=== PATIENT | female | born 1985 | race Caucasian/White ===

== ENCOUNTER 2019-05-16 05:18 | Inpatient (IN) | payer OTHER, SELFPAY ==
--- NOTE | 2019-05-15 17:59 | PCM.HP.OB ---
- Problem List (1) 39 weeks gestation of Status: Acute (2) Fourth degree perineal laceration Status: Acute (3) Sterilization Status: Acute History Date of Admission: 05/15/19 Final EMMANUEL: 05/23/19 Gestational age: 38 Weeks and 6 Days History of this : This is a 34 year-old, G2, P1001, who is scheduled for a PLTCS with tubal ligation at 39 weeks gestation. This is an elective section for h/o 4th degree perineal laceration. Medical History: Medical History (Last Updated 05/15/19 @ 18:02 by Serene Toledo DO) Anemia D64.9 History of fourth degree perineal laceration Z87.59 History of wisdom tooth extraction K08.409 Melanoma C43.9 Surgical History: Surgical History (Last Updated 05/15/19 @ 18:02 by Serene Toledo DO) History of removal of skin mole Z98.890, Z87.2 NKDA Home Medications: Home Medications Pnv No.95/Ferrous Fum/Folic AC [ Vitamin Tablet] 1 each PO 05/15/19 Smoking Status: Never smoker Number of Fetus(es): 1 History Past Pregnancies: Past Pregnancies Delivery Date Name GA/Weeks Outcome Route Weight Gender Labor Length Anesthesia Delivery Location Provider FOB Labs: GBS pos 1 hr GTT 114 Hgb 11.6 Sequential screen neg Syphilis NR RI Hep B neg HIV NR O positive Antibody screen neg GC/CT neg Expected Delivery Method: Primary Section Review of Systems Constitutional: Denies: Fever HEENT: Denies: Head Aches Cardiovascular: Denies: Chest Pain Respiratory: Denies: Cough, Shortness of Breath Gastrointestinal: Denies: Abdominal Pain Genitourinary: Denies: Dysuria Gynecological: Denies: Breast symptoms Neurological: Denies: Headaches Psychiatric: Denies: Anxiety, Depression Physical Exam General: Alert, No apparent distress HEENT: Atraumatic Cardiovascular: Regular rate Lungs: Clear to auscultation Abdomen: Soft, Gravid Extremities:: No edema Neurological: Neuro grossly intact [employer]: Normal external genitalia Estimated gestational size: Appropriate for gestational size Assessment/Plan All Active Problems (Last Updated 05/15/19 @ 18:02 by Serene Toledo DO) 39 weeks gestation of (Acute) Fourth degree perineal laceration (Acute) Sterilization (Acute) This is a 34 year-old, who is presenting at 39 weeks gestation for a primary section with tubal ligation. H/o 4th degree perineal laceration. Risks and benefits of vaginal delivery vs C/S were discussed in detail. Discussed that a tubal ligation is permanent and irreversible, and she needs to be 100% certain she does not want more children in the future. Patient desires a PLTCS with tubal ligation given her h/o 4th degree perineal laceration. Consent signed. To proceed with elective section with tubal ligation per pt request.
[2019-05-16] VITALS (21 sets, daily range): BP systolic 97–128; BP diastolic 51–75; PULSE 54–80; RESP 16–18; TEMP 36.2–36.9; O2SAT 97–100; BMI 34.7
[2019-05-16] MEDS: Lactated Ringers 1,000 ML 999 ML IV (05:15)
[2019-05-16 06:06] LABS: Absolute Lymphocyte Count 2.71 X10^3/ul (0.83-4.51); Absolute Neutrophil Count 5.9 X10^3/uL (2.0-7.7); Basophil# 0.04 X10^3/uL; Basophil% 0.4 % (0-1); Eosinophil# 0.11 X10^3/uL; Eosinophils% 1.1 % (0-5); Hematocrit 37.2 % (37-47); Hemoglobin 12.9 g/dl (12.0-15.0); Lymphocyte # 2.71 X10^3/ul (4.0); Lymphocyte % 27.6 % (19-41); Mean Corp Hgb Conc 34.7 g/gl (32-36); Mean Corpuscular Hgb 30.1 pg (27.0-32.0); Mean Corpuscular Volume 86.9 fL (81-99); Mean Platelet Vol. 11.9 fl (6.2-12.0); Monocyte# 1.01 X10^3/uL; Monocyte% 10.3 % (0-10); Neutrophil # 5.89 X10^3/uL (2.7-7.7); Neutrophil % 60.1 % (47-70); Platelet Count 203 K/mm3 (150-450); RBC Distribution Width CV 12.9 % (11.6-14.6); RBC Distribution Width SD 39.9 fl (35.1-43.9); Red Blood Count 4.28 M/mm3 (4.2-5.4); White Blood Count 9.8 K/mm3 (4.4-11.0)
[2019-05-16 06:07] LABS: POSITIVE COUNT NO; POSITIVE DIFFERENTIAL NO; POSITIVE MORPHOLOGY NO
[2019-05-16] MEDS: Lactated Ringers 1,000 ML 150 ML IV (06:31)
[2019-05-16] MEDS: Sodium Citrate/Citric Acid 30 ML UDC PO (06:57)
[2019-05-16] MEDS: Cefazolin 2 GM in 0.9% Normal Saline 100 ML IV (07:24)
[2019-05-16] MEDS: Oxytocin 30 units/NS 500 ml 30 UNITS/500 ML IV.SOLN 167 UNITS IV (07:52)
--- NOTE | 2019-05-16 08:38 | PCM.OPRPT ---
Problem List (1) 39 weeks gestation of Status: Acute (2) Fourth degree perineal laceration Status: Acute (3) Sterilization Status: Acute Report of Operation Date of Procedure: 05/16/19 Pre-Operative Diagnosis: multiparous patient, 39 weeks gestation, elective primary section due to h/o 4th degree perineal laceration, desires permanent sterilization Post-Operative Diagnosis: As above Surgery/Procedure Performed:: PLTCS via pfannenstiel incision with partial bilateral salpingectomy Description of Surgical Findings:: Normal appearing uterus, bilateral tubes, and bilateral ovaries. Clear fluid. Intact and normal appearing placenta. VMI in cephalic presentation. Type of Anesthesia:: Spinal Special Medications: None Specimen's removed: Placenta and bilateral fallopian tube segments Drains: Lawrence Estimated Blood Loss (mL): 500 Fluids Replaced: 1500 Description of Procedure: Patient was prepped and draped in usual sterile fashion in dorsal lithotomy position with a leftward tilt. Spinal anesthesia found to be adequate. A Pfannenstiel skin incision was made with the scalpel and carried down to the underlying layer of fascia. The fascia was incised in the midline and extended laterally using Enriquez scissors. The fascia was dissected off of the rectus muscles using sharp dissection cephalad and caudad. The rectus muscles were in the midline. The peritoneum was entered sharply and extended cephalad and caudad with good visualization of the bladder. A bladder flap was created. A low transverse incision was made on the uterus with the scalpel. Clear fluid noted. Infant in cephalic presentation and delivered without any force or delay. Cord was clamped and cut after 60 sec delay and handed off to nursery staff. Uterus was exteriorized and cleared of all clot and debris. The cervix was dilated with a ring forcep. The uterus was closed in a running locked fashion with Vicryl and hemostasis was noted. Bilateral fallopian tubes were followed out to the fimbriated ends. Each fallopian tube was double suture ligated and cut, to remove a segment of the fallopian tube. The tubes were hemostatic and sent to pathology for review. The uterine incision was again noted to be hemostatic. The uterus was placed back into the abdomen. The peritoneum was closed in a running fashion with Vicryl. The rectus muscles were noted to be hemostatic. The fascia was closed in a running fashion with Vicryl. The subcutaneous space was irrigated and closed in a running fashion with Vicryl. The skin was closed with Monocryl in a subcuticular fashion. Steri strips were placed, as well as a dressing. Instrument counts were correct. Patient was taken to the recovery room in stable condition. Grafts/Implants Used: None - Complications None - Admit VTE Documentation VTE Present on Admission: No VTE Mechan Device Prophylaxis: SCD's VTE Pharm Prophylaxis ordered?: Yes Delivery Classification: Scheduled Final EMMANUEL: 05/23/19 Gestational age: 39 Weeks and 0 Days Indications: H/o 4th degree perineal laceration, desires permanent sterilization Indications for : Desires elective sterilization Amniotic Membrane Rupture Type: Artificial Amniotic Fluid Description: Clear Specimen(s) sent to pathology: Bilateral fallopian tube segments Drain: Lawrence to straight drain Fluids Replaced: 1500 Cord Entanglement: Around neck x 1, loose Nuchal Cord Compression: Without compression Cord Vessel Description: 3 Vessels Esitmated Blood Loss (ml): 500 Gender: Male (1 minute): 9 (5 minute): 9 Delayed cord clamping: Yes Pre-op Antibiotic Given: Ancef 2 grams IV x1 Pt instructed on risks of surgery: Bleeding, Anesthesia Risks, Infection, Permanency Complications: None - Admit VTE Documentation VTE Present on Admission: No VTE Mechan Device Prophylaxis: SCD's VTE Pharm Prophylaxis ordered?: Yes
[2019-05-16] MEDS: Lactated Ringers 1,000 ML 100 ML IV ×2 (09:52→18:14)
--- NOTE | 2019-05-16 11:36 | FALS_PTH ---
PATIENT: BLANCA BHATT LOC: [facility] U#:[id number] AGE/SX: 34/F ROOM: WP003 RE05/16/[address]: Dr. Serene Toledo DO : 1985 BED: 1 DIS: 05/18/2019 SPEC #: [id number] RECD: 05/16/19 11:49 STATUS: NATALI ECTOR #: [id number] WINDY: 05/16/19 11:[address]: Serene Toledo DEPT: SURGICAL PATHOLOGY RECD BY: Irina Angulo ENTERED: 05/16/19 14:51 SP TYPE: FALL TUBES OTHR DR: Out of [facility] Doctor Tissues: Fallopian tube Procedures: Surgery Specimen Level II HEADER OPERATION: Tubal PRE-OP DIAGNOSIS: Sterilization request TISSUE SUBMITTED: Fallopian tubes, right tube has suture MICROSCOPIC DIAGNOSIS Right fallopian tube, sterilization: Segment of fallopian tube with complete lumen. Left fallopian tube, sterilization: Segment of fallopian tube with complete lumen. CE:malaika 05/17/19 MICROSCOPIC DESCRIPTION Slides are reviewed. GROSS DESCRIPTION Received is one container labeled with the patient's name and designated bilateral fallopian tubes, stitch right. The specimen consists of two tubular pieces of pink-peters soft tissue with the right identified with a suture. The right fallopian tube measures 1.5 cm in length and 0.7 cm in diameter. The left fallopian tube measures 1.5 cm in length and 0.6 cm in diameter. The entire specimen is submitted in two cassettes as follows: 1 - right fallopian tube, 2 - left fallopian tube. Both pieces will be sectioned at the time of embedding. / SJ:malaika 05/16/19 TC:5 CPT: 38257 x2
[2019-05-16 11:48] LABS: Pathology Specimen OB SEE PATHOLOGY REPORT
[2019-05-16] MEDS: Ketorolac 30 MG/ML Syringe IV ×2 (14:51→20:54)
[2019-05-17] MEDS: Ketorolac 30 MG/ML Syringe IV ×4 (01:03→19:45)
[2019-05-17 02:45] VITALS: PULSE 60; RESP 18; O2SAT 99
[2019-05-17 04:15] VITALS: BP 121/68; PULSE 64; RESP 18; TEMP 36.9; O2SAT 100
[2019-05-17 05:22] LABS: Hemoglobin 10.1 g/dl (12.0-15.0); Mean Corp Hgb Conc 33.7 g/gl (32-36); Mean Platelet Vol. 11.8 fl (6.2-12.0); Platelet Count 136 K/mm3 (150-450); RBC Distribution Width SD 40.1 fl (35.1-43.9); Red Blood Count 3.37 M/mm3 (4.2-5.4); White Blood Count 10.3 K/mm3 (4.4-11.0)
[2019-05-17 05:23] LABS: Scan Indicated on CBC? Y/N NO
[2019-05-17 06:17] VITALS: PULSE 70; RESP 16; O2SAT 100
[2019-05-17] MEDS: Enoxaparin 40 MG/0.4 ML Syringe SC (06:18)
[2019-05-17] MEDS: 0.9% Saline Lock 10 ML Syringe IV ×3 (08:10→19:46)
[2019-05-17] MEDS: Senna/Docusate Sodium 1 Tablet PO (08:10)
[2019-05-17 08:15] VITALS: BP 101/59; PULSE 78; RESP 18; TEMP 37.1; O2SAT 100
--- NOTE | 2019-05-17 08:17 | PCM.PN.OB ---
Subjective: Pt doing well. Pain controlled. Bella reg diet without N/V. Ambulating with occasional lightheadedness and dizziness that is not persistent. Spont voiding without difficulty. Lochia normal. Denies CP, SOB, leg pain. - Physical Exam General: Alert, No apparent distress HEENT: Atraumatic Lungs: - - No increased resp effort Abdomen: Soft, Non-Distended, - - ATTP, FF@U-2, dressing c/d/i Extremities: No edema, No Calf Tenderness Skin: No rashes Neurological: Neuro grossly intact Psych/Mental Status: Normal Affect, Appropriate Vital Signs Temp Pulse Resp BP Pulse Ox 98.4 F 70 16 121/68 H 100 05/17/19 04:15 05/17/19 06:17 05/17/19 06:17 05/17/19 04:15 05/17/19 06:17 Oxygen Delivery Method Room Air Weight: 155 lb Body Mass Index (BMI) 34.7 Intake and Output for Last 24 Hours 05/15/19 05/16/19 05/17/19 23:59 23:59 23:59 Intake Total 3275 / 3275 1794 / 1794 Output Total 700 / 700 2049 / 2049 Balance 2575 / 2575 -256 / -256 Laboratory Tests Past 24 Hrs 05/17/19 04:25 WBC 10.3 RBC 3.37 L Hgb 10.1 L Hct 30.0 L MCV 89.0 MCH 30.0 MCHC 33.7 RDW 13.0 RDW Differential 40.1 Plt Count 136 L MPV 11.8 Medical Necessity - Tobacco Use Smoking Status: Never smoker Assessment/Plan All Active Problems (Last Updated 05/15/19 @ 18:02 by Serene Toledo DO) 39 weeks gestation of (Acute) Fourth degree perineal laceration (Acute) Sterilization (Acute) POD# 1 s/p PLTCS - AF, VSS - Plt's 136 from 203. Will d/c Lovenox and recheck CBC in the AM - Pain controlled - Dispo: Routine PO care
[2019-05-17] MEDS: oxyCODONE 5 MG Tablet PO ×4 (09:10→22:32)
[2019-05-17 14:01] VITALS: BP 98/51; PULSE 64; RESP 16; TEMP 36.6; O2SAT 98
[2019-05-17 19:55] VITALS: BP 116/66; PULSE 73; RESP 18; TEMP 36.8
[2019-05-18] MEDS: 0.9% Saline Lock 10 ML Syringe IV ×2 (01:16→08:02)
[2019-05-18] MEDS: Ketorolac 30 MG/ML Syringe IV ×2 (01:16→08:02)
[2019-05-18 01:22] VITALS: BP 105/51; PULSE 70; RESP 18; TEMP 36.2
[2019-05-18 04:34] LABS: Hematocrit 28.1 % (37-47); Hemoglobin 9.3 g/dl (12.0-15.0); Mean Corp Hgb Conc 33.1 g/gl (32-36); Mean Corpuscular Hgb 29.8 pg (27.0-32.0); Mean Corpuscular Volume 90.1 fL (81-99); Mean Platelet Vol. 11.2 fl (6.2-12.0); Platelet Count 139 K/mm3 (150-450); RBC Distribution Width CV 13.2 % (11.6-14.6); RBC Distribution Width SD 41.9 fl (35.1-43.9); Red Blood Count 3.12 M/mm3 (4.2-5.4); White Blood Count 7.3 K/mm3 (4.4-11.0)
[2019-05-18 04:35] LABS: Scan Indicated on CBC? Y/N NO
--- NOTE | 2019-05-18 07:32 | PCM.PN.OB ---
Subjective: Patient doing well. Tolerating a regular diet without nausea or vomiting. Ambulating and voiding without difficulty. Pain well controlled. Lochia normal. without difficulty. Denies lightheadedness, dizziness, CP, SOB, leg pain. - Physical Exam General: Alert, No apparent distress HEENT: Atraumatic Lungs: Normal air movement Abdomen: Soft, Non-Distended, - - ATTP, dressing c/d/i Extremities: No edema, No Calf Tenderness Skin: No rashes Neurological: Neuro grossly intact Psych/Mental Status: Normal Affect, Appropriate Vital Signs Temp Pulse Resp BP Pulse Ox 97.2 F L 70 18 105/51 L 98 05/18/19 01:22 05/18/19 01:22 05/18/19 01:22 05/18/19 01:22 05/17/19 14:01 Oxygen Delivery Method Room Air Weight: 155 lb Body Mass Index (BMI) 34.7 Intake and Output for Last 24 Hours 05/16/19 05/17/19 05/18/19 23:59 23:59 23:59 Intake Total 3275 / 3275 1794 / 1794 Output Total 700 / 700 2650 / 2650 Balance 2575 / 2575 -856 / -856 Laboratory Tests Past 24 Hrs 05/18/19 04:20 WBC 7.3 RBC 3.12 L Hgb 9.3 L Hct 28.1 L MCV 90.1 MCH 29.8 MCHC 33.1 RDW 13.2 RDW Differential 41.9 Plt Count 139 L MPV 11.2 Medical Necessity - Tobacco Use Smoking Status: Never smoker Assessment/Plan All Active Problems (Last Updated 05/15/19 @ 18:02 by Serene Toledo DO) 39 weeks gestation of (Acute) Fourth degree perineal laceration (Acute) Sterilization (Acute) POD#2 s/p PLTCS with BPS - Doing well - Plt's trending up after Lovenox discontinued - - PPBC: S/p BPS - Dispo: Patient desires to go home today. D/c instructions reviewed and follow up discussed
[2019-05-18 08:00] VITALS: BP 124/63; PULSE 68; RESP 16; TEMP 36.6; O2SAT 99
[2019-05-18] MEDS: Acetaminophen 500 MG Tablet 1000 MG PO (08:15)
[2019-05-18] MEDS: oxyCODONE 5 MG Tablet PO ×2 (09:29→15:12)
--- NOTE | 2019-05-18 10:48 | DCINST_ITS ---
Discharge Diet: No Restrictions Discharge Activity: May Not Drive, May not drive while taking narcotic pain medications., May Shower May shower in (days): 0 May resume sexual activity in: 6 weeks Weight Bearing Status: Weight bearing as tolerated, Full weight bearing Lifting Restrictions: No heavy lifting greater than 25 pounds Call your doctor if your incision/area has: Sudden Increased Bleeding, Increased Pain/ Swelling, Increased Redness, Foul Smelling Discharge, Swelling at the incision site Call your doctor if you observe: Fever of 101 or Higher, Inability to urinate, Inability to have a bowel movement, Using more than one pad per hour, Shortness of breath, Dizziness, Chest pain, Increased palpitations (irregular heartbeat), Calf discomfort, Uncontrolled pain Suture Line Care: Avoid Pulling/Pushing, Avoid Pinching/Bending Remove Dressing in (days):: 3 Cleanse incision/area with: Soap & Water Instructions: After a Additional Instructions: If you experience any of the following, contact your healthcare provider. * Bleeding that soaks a pad every hour for 2 hours * Fever 100.4 or higher * Unrelieved incision or abdominal pain * Swelling, redness, discharge or bleeding from your incision or episiotomy site * Your incision begins to separate * Problems urinating (including inability to urinate or burning while urinating). * Visual changes * Severe headache * Flu-like symptoms * Pain or redness in one of both of your breasts * Pain, warmth, tenderness or swelling in your legs, especially the calf area * Frequent nausea and vomiting * Symptoms of depression or anxiety If you experience any of the following, call 911 or go to the nearest Emergency Room. * Chest pain * Problems breathing * Seizure activity * Partial or complete paralysis of a body part, slurred speech, weakness or drooping of the face, or a sudden inability to walk or hold your balance Allergies/Adverse Reactions: Allergies No Known Allergies Allergy (Verified 05/16/19 05:46) Medications to take at Discharge Pnv No.95/Ferrous Fum/Folic AC [ Vitamin Tablet] 1 each PO DAILY 05/15/19 Docusate Sodium [Colace] 100 mg PO BID PRN PRN #60 cap 05/18/19 Ferrous Sulfate 325 mg PO DAILY #60 tab 05/18/19 Oxycodone HCl/Acetaminophen [Percocet 5/325] 1 tab PO Q6H PRN PRN 7 Days #20 tab 05/18/19 The following prescriptions were given: Docusate Sodium [Colace] 100 mg PO BID PRN PRN #60 cap PRN Reason: Constipation Prescription Printed Ferrous Sulfate 325 mg PO DAILY #60 tab Prescription Printed Oxycodone HCl/Acetaminophen [Percocet 5/325] 1 tab PO Q6H PRN PRN 7 Days #20 tab PRN Reason: Pain Prescription Printed Follow-Up: Call to make an appointment with your doctor for an incision check in 1-2 weeks. You will also need a 6 week post- follow up appointment. Test results from this visit will be discussed in further detail at your follow- up appointment, if applicable. Please Follow Up With: Serene Toledo DO When: 1 week for incision check Primary Care Physician: Melo Burr,Out of [Primary Care Provider] - Proposed Discharge Date: 05/18/19
[2019-05-18 15:00] VITALS: BP 134/65; PULSE 82; RESP 16; TEMP 37
--- NOTE | 2019-05-23 17:44 | NURSING ---
[id number] Follow up phone call made and doing well with bottling and healing from her section. Dexter GUY
== END 2019-05-18 15:50 | disposition home or self-care (01) | DRG 785 ==
PROVIDERS: Admitting Provider Obstetrics & Gynecology; Referring Provider Obstetrics & Gynecology; Visit Provider Obstetrics & Gynecology
PROC: 10D00Z1 Extraction of Products of Conception, Low, Open Approach (ICD-10-PCS; CPT 59514; principal; 2019-05-16 07:15)
DX: O26.893 Other specified pregnancy related conditions, third trimester (principal); Z3A.39 39 weeks gestation of pregnancy; Z37.0 Single live birth; Z30.2 Encounter for sterilization; Z85.820 Personal history of malignant melanoma of skin; O69.82X0 Labor and delivery complicated by other cord entanglement, without compression, not applicable or unspecified
CPT/HCPCS: 85025; 85027; 86850; 86900; 88302; 99218; J7120; A4216; G0378; J2405